=== PATIENT | male | born 1965 ===

== ENCOUNTER 2017-10-02 04:57 | Emergency (ER) | payer OTHER ==
[2017-10-02 05:07] VITALS: O2SAT 100
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
[2017-10-02 06:38] VITALS: BP 137/81; PULSE 72; RESP 18; TEMP 98.1
== END 2017-10-02 06:28 | disposition home or self-care (01) ==
LOC: C.ER 04:57
DX: S16.1XXA Strain of muscle, fascia and tendon at neck level, initial encounter (principal); V49.49XA Driver injured in collision with other motor vehicles in traffic accident, initial encounter; Y92.410 Unspecified street and highway as the place of occurrence of the external cause
CPT/HCPCS: 96372; 99285; J1885